=== PATIENT | male | born 1940 | race Two or more races ===

== ENCOUNTER 2023-09-10 06:07 | Inpatient (IN) | payer OTHER, SELFPAY ==
[2023-09-04 11:10] LABS: Hematocrit 43.8 % (39.0-52.0); Hemoglobin 14.4 g/dL (13.0-18.0); Mean Corp Hgb Conc. 32.9 g/dL (33.0-37.0); Mean Corpuscular Hgb 27.7 pg (27.0-31.0); Mean Corpuscular Volume 84.2 fL (80.0-94.0); Mean Platelet Volume 9.5 fL (7.4-10.4); Platelet Count 153 10^3/uL (130-400); Red Cell Dist. Width 14.7 % (11.5-14.5)
[2023-09-04 11:18] LABS: INR 0.98; PT 12.8 Sec (11.4-14.6)
[2023-09-04 11:19] LABS: APTT 31.4 Sec (23.4-35.0)
[2023-09-04 11:36] LABS: ALT (SGPT) 11 U/L (0-50); AST (SGOT) 16 U/L (17-59); Albumin 4.5 g/dl (3.5-5.0); Alkaline Phosphatase 69 U/L (38-126); Blood Urea Nitrogen 21 mg/dl (9-20); Calcium 9.9 mg/dl (8.4-10.2); Carbon Dioxide 26 mmol/L (22-30); Chloride 107 mmol/L (98-107); Glucose 108 mg/dl (70-99); Potassium 3.9 mmol/L (3.5-5.1); Sodium 143 mmol/L (135-145); Total Bilirubin 0.6 mg/dl (0.2-1.3); Total Protein 7.2 g/dl (6.3-8.2); eGFR > 60.00
[2023-09-04 12:14] LABS: Glycohemoglobin (HgbA1c) 5.5 % (4.0-5.6)
[2023-09-04 13:04] VITALS: BMI 23.3
[2023-09-10] VITALS (12 sets, daily range): BP systolic 123–159; BP diastolic 66–82; BMI 23.3
[2023-09-10 06:36] LABS: Glucose - Point of Care 113 mg/dl (70-99)
[2023-09-10] MEDS: NORMOSOL-R 1000 IV ×2 (06:46→13:35)
[2023-09-10] MEDS: TYLENOL 1000 MG PO (06:46)
[2023-09-10] MEDS: ENTEREG 12 MG PO (06:47)
[2023-09-10] MEDS: NEURONTIN 600 MG PO (06:47)
[2023-09-10] MEDS: HEPARIN 5000 UNITS SC (06:48)
[2023-09-10 08:38] LABS: Glucose - Point of Care 110 mg/dl (70-99)
[2023-09-10 10:39] LABS: Glucose - Point of Care 143 mg/dl (70-99)
--- NOTE | 2023-09-10 11:54 | W.IMMPOSTOP ---
Surgical Immed Post Op Note
-
Primary Surgeon: Marty Escalera MD
Assisting Surgeon: ROSCOE Gramajo; ROSCOE Starks
Pre-op Diagnosis: cecal polyp
Post-op Diagnosis: same
Procedure Performed: robotic right colectomy
Anesthesia Type: general plus local
Specimen / Cultures: right colon
Estimated Blood Loss: 50 cc
Complications: bladder dome injury on entry
Operative Findings: 1) bladder stuck to lower midline 2) cecal polyp
Carrera in bladder. Dr. Ferreira did the bladder repair. Will keep in for 5-6 days.
Will send to med surg.
[2023-09-10] MEDS: TORADOL 10 MG IV ×2 (13:29→17:32)
--- NOTE | 2023-09-10 13:32 | W.IMMPOSTOP ---
Surgical Immed Post Op Note
-
Primary Surgeon: Ashleighfer
Assisting Surgeon: -
Pre-op Diagnosis: Cystotomy
Post-op Diagnosis: same
Procedure Performed: Bladder wall closure
Anesthesia Type: gen
Specimen / Cultures: none
Estimated Blood Loss: 2cc
Complications: none
Operative Findings: 3cm anterior bladder wall perforation due to adherence to anterior abdominal wall after prior bladder surgery
Closure of cystotomy in 2 layers with water tight closure
No leak with 200cc fill test
20Fr benson placed
[2023-09-10 13:34] LABS: Glucose - Point of Care 151 mg/dl (70-99)
[2023-09-10 13:43] LABS: % Basophils 0.1 % (0-2); % Immature Granulocytes 0.1 % (0-0.5); % Lymphocytes 9.5 % (20.5-51.1); % Monocytes 2.8 % (1.7-9.3); % Neutrophils 87.5 % (42.2-75.2); Absolute Lymphocytes 0.7 10^3/uL (1.2-3.4); Absolute Monocytes 0.2 10^3/uL (0.1-0.6); Hematocrit 36.6 % (39.0-52.0); Hemoglobin 12.5 g/dL (13.0-18.0); Mean Corp Hgb Conc. 34.2 g/dL (33.0-37.0); Mean Corpuscular Hgb 28.3 pg (27.0-31.0); Mean Corpuscular Volume 82.8 fL (80.0-94.0); Mean Platelet Volume 8.9 fL (7.4-10.4); Nucleated Red Blood Cells % 0 % (-); Platelet Count 128 10^3/uL (130-400); Red Blood Cell Count 4.42 10^6/uL (4.70-6.10); Red Cell Dist. Width 14.8 % (11.5-14.5); White Blood Cell Count 6.9 10^3/uL (4.8-10.8)
[2023-09-10 14:02] LABS: Blood Urea Nitrogen 12 mg/dl (9-20); Calcium 8.2 mg/dl (8.4-10.2); Carbon Dioxide 22 mmol/L (22-30); Chloride 109 mmol/L (98-107); Estimated Creatinine Clearance 61 ml/min; Glucose 149 mg/dl (70-99); Magnesium 1.9 mg/dl (1.6-2.3); Potassium 3.7 mmol/L (3.5-5.1); Sodium 137 mmol/L (135-145); eGFR > 60.00
--- NOTE | 2023-09-10 14:40 | CON.HOSP ---
Consultation
-
Date/Time Consultation Requested: 09/10/2023
Requesting Provider: Dr. Escalera
Reason for Consultation: Diabetes mellitus evaluation and management
Family Physician
-
Family Physician: Xin Torres
Chief Complaint
-
Elective surgery, colectomy
History of Present Illness
Patient 83 years old man with history of diabetes mellitus, CAD, BPH, hyperlipidemia, presented to the hospital for elective colectomy. Patient had a colon cecal polyp and he was scheduled for robotic right colectomy today on 09/09 by colorectal
surgery. He also required bladder wall closure with cystostomy by urology. We are seeing him postop and consult for diabetes mellitus management. Patient seen in [address] [place] [address] and he is comfortable. Denies any chest pain or shortness of breath, denies
any polyuria polydipsia polyphagia although he has a Carrera catheter in place. No fevers or chills. Blood sugars in the 140s 150s. Patient tells me he is diabetic since last March last year. He manages his diabetes with oral hypoglycemics,
metformin and he does have a sensor and his physician is planning probably taken off medication in the near future. He was referred to hospitalist for further evaluation.
Medical History
Past Medical History
Past Medical History: Reports Other (Hyperlipidemia, BPH, diabetes mellitus type 2, mild cognitive deficits (he describes mild memory issues), gout, colon polyp.)
Past Surgical History: Reports Other (Right colectomy.)
Social History
Tobacco: Non-smoker
Alcohol: None
Drug: None
Family History
Family History: Reviewed & Not Pertinent
Allergies / Home Medications
Allergies reflects when Allergies were last updated in [facility].
Home Medications with original date entered in [facility]
Allergy/Medication List:
Allergies
Allergy/AdvReac Type Severity Reaction Status Date / Time
No Known Allergies Allergy Verified 09/10/23 06:39
Home Medications
allopurinol 100 mg tablet 100 mg PO DAILY 09/07/23
metformin 500 mg tablet,extended release 24hr (osmotic) 500 mg PO BID 09/07/23
metronidazole 500 mg tablet 500 mg PO TID 09/07/23
neomycin 500 mg tablet 1 g PO TID 09/07/23
pravastatin 40 mg tablet 40 mg PO DAILY 09/07/23
sodium sul 1.479 gram-potas ch 0.188 gram-magnes sul 0.225 gram tablet (Sutab) 0 tab PO PER PKG DIR 09/07/23
tamsulosin 0.4 mg capsule 0.4 mg PO HS 09/07/23
Review of Systems
-
A 12 point Review of Systems was completed except as noted: Yes
Physical Exam
Vital Signs
Vital Signs
Temp Pulse Resp BP Pulse Ox
98.2 F 79 13 134/73 99
09/10/23 14:25 09/10/23 14:15 09/10/23 14:15 09/10/23 14:15 09/10/23 14:15
Physical exam:
General: Well Developed, Well Nourished and No Apparent Distress
HEENT: Normocephalic, Atraumatic and Moist Mucous Membranes
Respiratory: Clear to Auscultation; Negative Wheezes, Rales or Rhonchi
Cardiac: Regular Rhythm and S1/S2
GI: Soft, mild tender and distended. Postop findings
Musculoskeletal: No Clubbing, No Cyanosis and No Edema
Neuro: Awake, Alert and Oriented
Psych: Calm
Physical Exam
General: Other
Laboratory Results
-
Laboratory Results
09/10/23 13:31
09/10/23 13:31
PT 12.8 Sec (11.4-14.6) 09/04/23 10:06
INR 0.98 09/04/23 10:06
APTT 31.4 Sec (23.4-35.0) 09/04/23 10:06
Total Bilirubin 0.6 mg/dl (0.2-1.3) 09/04/23 10:06
AST 16 U/L (17-59) L 09/04/23 10:06
ALT 11 U/L (0-50) 09/04/23 10:06
Alkaline Phosphatase 69 U/L (38-126) 09/04/23 10:06
Impression / Plan
-
IMPRESSION:
Patient 83 years old male with history of diabetes mellitus came to the hospital for elective colectomy. We are seeing him in consultation for diabetes mellitus.
Impression:
Diabetes mellitus type 2
Elective right colectomy
Bladder wall closure
Conditions prior to presentation:
Hyperlipidemia
Gout
Diabetes mellitus type 2
Cognitive deficits
BPH
PLAN:
Diabetic diet
Will check blood sugars before meals and at bedtime
Will add insulin sliding scale
Will monitor blood sugar and adjust medications accordingly
Will update hemoglobin A1c in a.m.
Will continue home diabetic regimen-->Will resume oral hypoglycemics over the next 24 hours if tolerating oral
Will give further recommendations based on his clinical course
Appreciate the opportunity of letting us seeing Mr Patel in consultation. Also discussed with at bedside.
--- NOTE | 2023-09-10 14:41 | PTCARENOTE ---
Pt arrived to 2S in bed. Full assessment completed. Abdominal incisions C/D/I, dermabonded and AMY. Carrera catheter with blood tinged urine. Bed locked and in the lowest position, safety maintained. Oriented to room and call villegas.
[2023-09-10 17:10] LABS: Glucose - Point of Care 147 mg/dl (70-99)
[2023-09-10] MEDS: TYLENOL 650 MG PO ×2 (17:30→21:02)
[2023-09-10] MEDS: FLOMAX 0.400000000000000022 MG PO (21:06)
[2023-09-10 23:54] LABS: Glucose - Point of Care 121 mg/dl (70-99)
[2023-09-11] MEDS: NORMOSOL-R 1000 IV (02:05)
[2023-09-11 03:11] VITALS: BP 127/69
[2023-09-11] MEDS: TYLENOL 650 MG PO ×7 (04:03→23:33)
[2023-09-11] MEDS: TORADOL 10 MG IV ×5 (05:35→23:33)
[2023-09-11 05:56] LABS: Glucose - Point of Care 102 mg/dl (70-99)
[2023-09-11 06:00] VITALS: BMI 23.2
[2023-09-11 06:30] LABS: % Basophils 0.1 % (0-2); % Eosinophils 0.1 % (0-6); % Immature Granulocytes 0.3 % (0-0.5); % Lymphocytes 20.7 % (20.5-51.1); % Monocytes 8.5 % (1.7-9.3); % Neutrophils 70.3 % (42.2-75.2); Absolute Lymphocytes 1.4 10^3/uL (1.2-3.4); Absolute Monocytes 0.6 10^3/uL (0.1-0.6); Absolute Neutrophils 4.7 10^3/uL (1.4-6.5); Hematocrit 38.1 % (39.0-52.0); Hemoglobin 12.4 g/dL (13.0-18.0); Mean Corp Hgb Conc. 32.5 g/dL (33.0-37.0); Mean Corpuscular Hgb 27.6 pg (27.0-31.0); Mean Corpuscular Volume 84.9 fL (80.0-94.0); Mean Platelet Volume 9.5 fL (7.4-10.4); Nucleated Red Blood Cells % 0 % (-); Platelet Count 138 10^3/uL (130-400); Red Blood Cell Count 4.49 10^6/uL (4.70-6.10); Red Cell Dist. Width 14.6 % (11.5-14.5); White Blood Cell Count 6.7 10^3/uL (4.8-10.8)
[2023-09-11 06:46] LABS: Blood Urea Nitrogen 14 mg/dl (9-20); Calcium 8.5 mg/dl (8.4-10.2); Carbon Dioxide 26 mmol/L (22-30); Chloride 106 mmol/L (98-107); Estimated Creatinine Clearance 54 ml/min; Glucose 100 mg/dl (70-99); Potassium 4.4 mmol/L (3.5-5.1); Sodium 136 mmol/L (135-145); eGFR > 60.00
[2023-09-11 07:15] VITALS: BP 129/81
--- NOTE | 2023-09-11 08:20 | W.PN.HOSP.TC ---
Today's Communication/Plan
-
Restart metformin. Continue insulin sliding scale while in the hospital. Please call us for questions.
Assessment / Plan
Assessment / Plan
Physical exam:
General: Well Developed, Well Nourished and No Apparent Distress
HEENT: Normocephalic, Atraumatic and Moist Mucous Membranes
Respiratory: Clear to Auscultation; Negative Wheezes, Rales or Rhonchi
Cardiac: Regular Rhythm and S1/S2
GI: Soft, Nontender and Nondistended. Postop findings
Musculoskeletal: No Clubbing, No Cyanosis and No Edema
Neuro: Awake, Alert and Oriented, cognitive deficits present and more pronounced today.
Psych: Calm
A/P:
Impression:
Diabetes mellitus type 2
Elective right colectomy
Bladder wall closure
Conditions prior to presentation:
Hyperlipidemia
Gout
Diabetes mellitus type 2
Cognitive deficits
BPH
PLAN:
Checking blood sugars before meals and at bedtime
Cont insulin sliding scale
Hemoglobin A1c in a.m. 5.5 on 09/03
Okay to restart home doses of metformin today (metformin p.o. 500 mg twice a day) since he is on clear liquid diet and normal renal function.
Blood sugar stable, 102 this morning
Discussed with RN today on 09/10.
I will sign off today. Please reconsult or reach out to us if any questions or concerns.
Anticipated Discharge: 24 - 48 hours
Subjective/Interval History
-
Date of Service: September 11, 2023
Patient doing well overall. No chest pain or shortness of breath.
Objective Data
-
Labs:
Laboratory Results
09/11/23
05:08
WBC 6.7
Hgb 12.4 L
Hct 38.1 L
Plt Count 138
Sodium 136
Potassium 4.4
Chloride 106
Carbon Dioxide 26
BUN 14
Creatinine 0.9
Glucose 100 H
Calcium 8.5
Vital Signs:
Vital Signs
Temp Pulse Resp BP Pulse Ox
97.8 F 74 16 129/81 99
09/11/23 07:15 09/11/23 07:15 09/11/23 07:15 09/11/23 07:15 09/11/23 07:15
I&O
09/10/23 09/11/23 09/12/23
06:59 06:59 06:59
Intake Total 1600 / 1600
Output Total 1350 / 1350
Balance 250 / 250
Review of Systems
-
Unable to obtain full review of systems at this time due to: Dementia
[2023-09-11] MEDS: PRAVACHOL 40 MG PO (08:58)
[2023-09-11] MEDS: ENTEREG 12 MG PO ×2 (08:58→20:21)
[2023-09-11] MEDS: ZYLOPRIM 100 MG PO (08:58)
[2023-09-11] MEDS: PROTONIX 40 MG PO (09:00)
--- NOTE | 2023-09-11 11:15 | W.PN.CRS1 ---
Today's Communication / Plan
-
Will start clears and Lovenox
Continue Carrera for bladder repair
Assessment/Plan
-
83-year-old male with PMH of HTN, DM, HLD, CAD, gout who was found to have an unresectable ileocecal polyp
POD 1 robotic right hemicolectomy c/b bladder injury s/p repair by urology
WBC 6.7, Hb 12.4 from 12.5, UOP 1.3 L
� Advance to clears
� Continue pain control with Tylenol, Toradol and morphine as needed, continue Entereg
� Continue Carrera per urology; keep in place for 4 to 5 days postop
� IS/OOB
� Will start DVT PPx with Lovenox
� Appreciate hospitalist for comorbidities
Subjective Data
Subjective Data
Date of Service: September 11, 2023
No overnight events.
Pain controlled.
Denies nausea/vomiting. Tolerating sips.
No bowel function + Carrera
Pt is not OOB yet.
Objective Data
-
Vital Signs
Temp Pulse Resp BP Pulse Ox
97.8 F 74 16 129/81 99
09/11/23 07:15 09/11/23 07:15 09/11/23 07:15 09/11/23 07:15 09/11/23 07:15
Intake & Output
09/10/23 09/11/23 09/12/23
06:59 06:59 06:59
Intake Total 1600 / 1600
Output Total 1350 / 1350
Balance 250 / 250
Intake:
Oral fluids 220 / 220
IV fluids (Total) 1380 / 1380
Normosol 100 / 100
Output:
Urine, Carrera 1350 / 1350
Lab Results
09/11/23 05:08
09/11/23 05:08
Physical Exam
-
General: No Acute Distress, AOx3 and Other (Forgetful)
HEENT: Grossly Normal
Abdomen: Soft, Non Distended, Tender (Appropriately tender incisions), No Guarding and No Rebound
Skin: Warm and Dry
Wound: No Signs of Infection, Dressing in Place (Dermabond) and No Skin Erythema
--- NOTE | 2023-09-11 11:50 | CM ---
Initial assessment completed with patient who lives with his daughter, son-in-law and 3 grandchildren in a 2 story home plus basement with B/B on 2nd floor and 1/2 bath on 1st. Patient has a SPC, no in-home services, no psychiatric
hospitalizations. Patient mentioned x3 that he has difficulties with short term memory. He was, however, able to converse appropriately and able to respond to questioning. Pharmacy is [facility] and PCP is Dr. Xin Torres.
Anticipate HOME WITH HH.
[2023-09-11 12:00] VITALS: BP 144/71
[2023-09-11 12:36] LABS: Glucose - Point of Care 94 mg/dl (70-99)
--- NOTE | 2023-09-11 12:57 | W.PN.URO.CBU ---
Today's Communication / Plan
-
Maintain benson
Outpatient follow up with his regular urologist for catheter management
Assessment / Plan
-
83M with prior open cystolithalopaxy who was found to have 3cm bladder wall perforation during R colectomy 09/11/23, likely due to adherence of the bladder to anterior abdominal wall
Bladder repaired intraoperatively in two layers with negative leak test
20Fr benson placed
Recommend discharge with benson in place to allow bladder healing. Would recommend keeping this in place for 10 days with cystogram prior to removal
Patient was in contact with his regular urologist Dr. Varela post operatively and prefers to follow up with him for catheter management
So far I have not been able to reach Dr. Varela myself but will provide him an update when I reach him
Will sign off - Please call with additional questions
Diagnosis
-
Date of Service: September 11, 2023
-
Patient Diagnosis:
Bladder perforation/cystotomy
Post Op Day: 1
Subjective
-
Feeling well this AM, pain controlled
Objective
-
Vital Signs
Temp Pulse Resp BP Pulse Ox
97.8 F 74 16 129/81 99
09/11/23 07:15 09/11/23 07:15 09/11/23 07:15 09/11/23 07:15 09/11/23 07:15
Intake and Output
09/10/23 09/11/23 09/12/23
06:59 06:59 06:59
Intake Total 1600 / 1600
Output Total 1350 / 1350
Balance 250 / 250
Intake:
Oral fluids 220 / 220
IV fluids (Total) 1380 / 1380
Normosol 100 / 100
Output:
Urine, Benson 1350 / 1350
Laboratory Results
09/11/23 05:08
09/11/23 05:08
Physical Exam
-
General - well developed, well nourished, no acute distress
Chest - clear bilaterally
Abdomen - soft, non-tender
- benson in place, clear urine
Skin - warm & dry with no rash
Neuro - AOx3, no motor deficits
Extremities - no clubbing, no cyanosis, no edema
Incision - clean, dry
Dressing - clean, dry, intact
[2023-09-11] MEDS: GLUCOPHAGE 500 MG PO ×2 (13:03→17:52)
[2023-09-11 14:21] VITALS: BP 142/72; BP 154/68; PULSE 71; O2SAT 100
[2023-09-11 16:00] VITALS: BP 127/69
[2023-09-11 16:39] LABS: Glucose - Point of Care 127 mg/dl (70-99)
[2023-09-11] MEDS: LOVENOX 40 MG SC (17:51)
[2023-09-11] MEDS: FLOMAX 0.400000000000000022 MG PO (20:21)
[2023-09-11 21:53] LABS: Glucose - Point of Care 88 mg/dl (70-99)
[2023-09-11 23:25] VITALS: BP 147/73
[2023-09-12] MEDS: TYLENOL PO (04:14)
[2023-09-12] MEDS: TORADOL IV (05:47)
[2023-09-12 06:00] VITALS: BMI 23.1
[2023-09-12 07:02] VITALS: BP 148/81
[2023-09-12 07:24] LABS: Glucose - Point of Care 106 mg/dl (70-99)
[2023-09-12] MEDS: PROTONIX 40 MG PO (08:49)
[2023-09-12] MEDS: PRAVACHOL 40 MG PO (08:49)
[2023-09-12] MEDS: TYLENOL 650 MG PO ×4 (08:49→20:20)
[2023-09-12] MEDS: GLUCOPHAGE 500 MG PO ×2 (08:49→17:02)
[2023-09-12] MEDS: ZYLOPRIM 100 MG PO (08:50)
[2023-09-12] MEDS: ENTEREG 12 MG PO ×2 (08:50→20:20)
[2023-09-12 12:01] LABS: Glucose - Point of Care 141 mg/dl (70-99)
[2023-09-12] MEDS: TORADOL 10 MG IV ×2 (12:10→17:03)
--- NOTE | 2023-09-12 12:54 | W.PN.CRS1 ---
Today's Communication / Plan
-
Advance diet
OOB/Ambulate
Continue benson
Assessment/Plan
-
83-year-old male with PMH of HTN, DM, HLD, CAD, gout who was found to have an unresectable ileocecal polyp
POD 2 robotic right hemicolectomy c/b bladder injury s/p repair by urology
AFVSS
Passing flatus
+hematuria
� Advance to LRD
� Continue pain control with Tylenol. Tramadol prn. continue Entereg
� Continue Benson per urology; keep in place for 4 to 5 days postop. Will likely remain in place upon discharge.
� IS/OOB
� Will start DVT PPx with Lovenox
- CM consulted for home care arrangements
� Appreciate hospitalist for comorbidities, discussed patient with Urologist.
Subjective Data
Procedure
09/09 robotic right colectomy (margie), repair of bladder wall (peffer)
Subjective Data
Date of Service: September 12, 2023
Patient seen and examined at bedside with Dr. Duenas. Denies n/v. Tolerating liquids. Minimal post op discomfort. +flatus, no bm as of yet. Tolerating benson.
Objective Data
-
Vital Signs
Temp Pulse Resp BP Pulse Ox
98.8 F 81 14 148/81 97
09/12/23 07:02 09/12/23 07:02 09/12/23 07:02 09/12/23 07:02 09/12/23 07:02
Intake & Output
09/11/23 09/12/23 09/13/23
06:59 06:59 06:59
Intake Total 1600 / 1600
Output Total 1350 / 1350 900 / 900
Balance 250 / 250 -900 / -900
Intake:
Oral fluids 220 / 220
IV fluids (Total) 1380 / 1380
Normosol 100 / 100
Output:
Urine, Benson 1350 / 1350 900 / 900
Lab Results
09/11/23 05:08
09/11/23 05:08
Physical Exam
-
General: No Acute Distress and AOx3
HEENT: Grossly Normal
Abdomen: Soft, Non Distended, Tender (Appropriately tender incisions), No Guarding, No Rebound and Other (benson with bloody urine)
Skin: Warm and Dry
Wound: No Signs of Infection, Dressing in Place (Dermabond) and No Skin Erythema
[2023-09-12 14:18] VITALS: BP 139/68; PULSE 94
--- NOTE | 2023-09-12 15:08 | W.PN.URO.CBU ---
Today's Communication / Plan
-
Observe hematuria
Flushing PRN
Assessment / Plan
-
83M with prior open cystolithalopaxy who was found to have 3cm bladder wall perforation during R colectomy 09/11/23, likely due to adherence of the bladder to anterior abdominal wall
Bladder repaired intraoperatively in two layers with negative leak test
20Fr benson placed
Some hematuria 09/11
Bladder irrigated at bedside with about 50cc of clot removed
Urine light pink after flushing clot
Continue to observe hematuria
Recommend discharge with benson in place to allow bladder healing. Would recommend keeping this in place for 10 days with cystogram prior to removal
Patient was in contact with his regular urologist Dr. Varela post operatively and prefers to follow up with him for catheter management
So far I have not been able to reach Dr. Varela myself but will provide him an update when I reach him
Diagnosis
-
Date of Service: September 12, 2023
-
Patient Diagnosis:
Bladder perforation/cystotomy
Subjective
-
Tolerating benson
Developed some hematuria overnight
Objective
-
Vital Signs
Temp Pulse Resp BP Pulse Ox
98.8 F 81 14 148/81 97
09/12/23 07:02 09/12/23 07:02 09/12/23 07:02 09/12/23 07:02 09/12/23 07:02
Intake and Output
09/11/23 09/12/23 09/13/23
06:59 06:59 06:59
Intake Total 1600 / 1600
Output Total 1350 / 1350 900 / 900
Balance 250 / 250 -900 / -900
Intake:
Oral fluids 220 / 220
IV fluids (Total) 1380 / 1380
Normosol 100 / 100
Output:
Urine, Benson 1350 / 1350 900 / 900
Laboratory Results
09/11/23 05:08
09/11/23 05:08
Physical Exam
-
General - well developed, well nourished, no acute distress
Chest - clear
Abdomen - soft, non-tender
- benson in place, urine red with clots
Incision - clean, dry
Dressing - clean, dry, intact
--- NOTE | 2023-09-12 15:53 | CM ---
Received consult for VN. Reviewed chart notes and spoke with the patient at the bedside and spouse via phone. Per spouse, patient was receiving VN services through [place]. Referral sent to [facility] via [facility]. Initially referral
sent to VN, but the patient is out of area for VN.
[2023-09-12 16:01] VITALS: BP 141/85
[2023-09-12 16:53] LABS: Glucose - Point of Care 119 mg/dl (70-99)
[2023-09-12] MEDS: LOVENOX 40 MG SC (17:02)
[2023-09-12 20:04] VITALS: BMI 23.1
--- NOTE | 2023-09-12 21:00 | PTCARENOTE ---
MD notified of bloody output with clots from catheter, PRN irrigation order placed, irrigated for 100ml NSS per order. Carrera patent but cont with bloody output.
[2023-09-12] MEDS: FLOMAX 0.400000000000000022 MG PO (21:40)
[2023-09-12 21:46] LABS: Glucose - Point of Care 92 mg/dl (70-99)
[2023-09-13 00:10] VITALS: BP 163/83
[2023-09-13] MEDS: TYLENOL PO ×3 (04:00→17:33)
[2023-09-13] MEDS: TORADOL IV ×4 (05:49→17:46)
[2023-09-13 06:00] VITALS: BMI 23.9
--- NOTE | 2023-09-13 06:23 | PTCARENOTE ---
benson irrigated 2x during shift, cont with clots and bloody output, benson patent.
[2023-09-13 07:30] VITALS: BP 124/56
[2023-09-13 07:35] LABS: Glucose - Point of Care 112 mg/dl (70-99)
[2023-09-13] MEDS: PROTONIX 40 MG PO (08:06)
[2023-09-13] MEDS: ZYLOPRIM 100 MG PO (08:06)
[2023-09-13] MEDS: GLUCOPHAGE 500 MG PO ×2 (08:06→17:34)
[2023-09-13] MEDS: TYLENOL 650 MG PO ×3 (08:06→21:00)
[2023-09-13] MEDS: ENTEREG 12 MG PO ×2 (08:06→21:09)
[2023-09-13] MEDS: PRAVACHOL 40 MG PO (08:06)
--- NOTE | 2023-09-13 11:44 | W.PN.CRS1 ---
Today's Communication / Plan
-
continue low residue
urology to see regarding bloody benson output
Assessment/Plan
-
83-year-old male with PMH of HTN, DM, HLD, CAD, gout who was found to have an unresectable ileocecal polyp
POD#3 robotic right hemicolectomy c/b bladder injury s/p repair by urology
1. Continue LRD.
2. Continue pain control with Tylenol. Tramadol prn.
3. Continue Benson per urology; keep in place for 4 to 5 days postop. Will likely remain in place upon discharge. Still with bloody output, discussed with urology who will see patient again today. May need VN/home irrigations.
4. IS/OOB
5. DVT PPx: Lovenox, TEDS, SCDS.
6. Appreciate hospitalist.
7. Likely home tomorrow.
Subjective Data
Procedure
09/09 robotic right colectomy (margie), repair of bladder wall (peffer)
Subjective Data
Date of Service: September 13, 2023
Patient states he feels 'okay'. He has no complaints. He is tolerating a low residue diet. He has bowel function. His catheter is still putting out red bloody urine.
Objective Data
-
Vital Signs
Temp Pulse Resp BP Pulse Ox
98.7 F 91 16 124/56 97
09/13/23 07:30 09/13/23 07:30 09/13/23 07:30 09/13/23 07:30 09/13/23 07:30
Intake & Output
09/12/23 09/13/23 09/14/23
06:59 06:59 06:59
Intake Total 1660 / 1660
Output Total 900 / 900 2380 / 2380
Balance -900 / -900 -720 / -720
Intake:
Oral fluids 1460 / 1460
Benson intermittent irrigation 200 / 200
Output:
Urine, Benson 900 / 900 950 / 950
Urine, Voided 1430 / 1430
Lab Results
09/11/23 05:08
09/11/23 05:08
Physical Exam
-
General: No Acute Distress and AOx3
Abdomen: Soft, Non Distended and Non Tender
Skin: Warm and Dry
Incision: Clear, Dry, Intact
--- NOTE | 2023-09-13 11:51 | W.PN.URO.CBU ---
Addendum entered and electronically signed by Abdias Ferreira MD 09/13/23 17:37:
Will hold Lovenox which may help stop any residual prostate bleeding
Original Note:
Today's Communication / Plan
-
Trend hematuria
Flush PRN
Assessment / Plan
-
83M with prior open cystolithalopaxy who was found to have 3cm bladder wall perforation during R colectomy 09/11/23, likely due to adherence of the bladder to anterior abdominal wall
Bladder repaired intraoperatively in two layers with negative leak test
20Fr benson placed
Some hematuria starting 09/11, irrigated for removal of clot
Some persistent hematuria today requiring catheter flushing, but less clot than yesterday and today irrigated to clear
Trend hematuria - hopefully no further intervention needed
- Recommend discharge with benson in place to allow bladder healing. Would recommend keeping this in place for 10 days with cystogram prior to removal
- Patient was in contact with his regular urologist Dr. Varela post operatively and prefers to follow up with him for catheter management
- So far I have not been able to reach Dr. Varela myself but will provide him an update when I reach him
Diagnosis
-
Date of Service: September 13, 2023
-
Patient Diagnosis:
Bladder perforation/cystotomy
Subjective
-
Flushing for clots twice last night - no pain or obstruction
Objective
-
Vital Signs
Temp Pulse Resp BP Pulse Ox
98.7 F 91 16 124/56 97
09/13/23 07:30 09/13/23 07:30 09/13/23 07:30 09/13/23 07:30 09/13/23 07:30
Intake and Output
09/12/23 09/13/23 09/14/23
06:59 06:59 06:59
Intake Total 1660 / 1660
Output Total 900 / 900 2380 / 2380
Balance -900 / -900 -720 / -720
Intake:
Oral fluids 1460 / 1460
Benson intermittent irrigation 200 / 200
Output:
Urine, Benson 900 / 900 950 / 950
Urine, Voided 1430 / 1430
Laboratory Results
09/11/23 05:08
09/11/23 05:08
Physical Exam
-
General - well developed, well nourished, no acute distress
Chest - clear
Abdomen - soft, non-tender
- benson in place, dark urine
Incision - clean, dry
Dressing - clean, dry, intact
[2023-09-13 11:55] LABS: Glucose - Point of Care 147 mg/dl (70-99)
[2023-09-13 15:25] VITALS: BP 128/75
--- NOTE | 2023-09-13 15:48 | CHAP ---
Mr. Naylor welcomed me graciously. We prayed together, and I assured him we are here for him.
--- NOTE | 2023-09-13 15:52 | CM ---
Reviewed the chart notes and spoke with the patient at the bedside. IMM signed and placed on the chart. CM continues to be available to patient/family and is monitoring medical plan for needs at discharge.
Plan: Discharge to home with [facility].
[2023-09-13 17:11] LABS: Glucose - Point of Care 111 mg/dl (70-99)
[2023-09-13] MEDS: FLOMAX 0.400000000000000022 MG PO (21:09)
[2023-09-13 21:35] LABS: Glucose - Point of Care 86 mg/dl (70-99)
[2023-09-13 23:02] VITALS: BP 157/81
[2023-09-14] MEDS: TYLENOL PO ×2 (01:00→04:59)
[2023-09-14] MEDS: TORADOL IV ×5 (01:00→17:13)
[2023-09-14 07:35] VITALS: BP 130/74
[2023-09-14 07:41] LABS: Glucose - Point of Care 108 mg/dl (70-99)
--- NOTE | 2023-09-14 07:55 | W.PN.HOSP.TC ---
Today's Communication/Plan
-
cont current mgmt
Assessment / Plan
Assessment / Plan
Physical exam:
General: Well Developed, Well Nourished and No Apparent Distress
HEENT: Normocephalic, Atraumatic and Moist Mucous Membranes
Respiratory: Clear to Auscultation; Negative Wheezes, Rales or Rhonchi
Cardiac: Regular Rhythm and S1/S2
GI: Soft, Nontender and Nondistended. Postop findings
Musculoskeletal: No Clubbing, No Cyanosis and No Edema
Neuro: Awake, Alert and Oriented, cognitive deficits present and more pronounced today.
Psych: Calm
A/P:
Impression:
Diabetes mellitus type 2
Elective right colectomy
Bladder wall closure
Hematuria
Conditions prior to presentation:
Hyperlipidemia
Gout
Diabetes mellitus type 2
Cognitive deficits
BPH
PLAN:
Tolerating low residue diet
Carrera catheter in place
Checking blood sugars before meals and at bedtime
Cont insulin sliding scale
Hemoglobin A1c in a.m. 5.5 on 09/03
Tolerating metformin okay
Blood sugar stable, 108 and 127 this morning
Discussed with RN today on 09/13.
Will follow-up as needed.
Anticipated Discharge: Within 24 hours
Subjective/Interval History
-
Date of Service: September 14, 2023
Patient seen and examined.
Objective Data
-
Vital Signs:
Vital Signs
Temp Pulse Resp BP Pulse Ox
98.9 F 92 18 157/81 99
09/13/23 23:02 09/13/23 23:02 09/13/23 23:02 09/13/23 23:02 09/13/23 23:02
I&O
09/13/23 09/14/23 09/15/23
06:59 06:59 06:59
Intake Total 1660 / 1660 1180 / 1180
Output Total 2380 / 2380 700 / 700
Balance -720 / -720 480 / 480
--- NOTE | 2023-09-14 08:18 | W.PN.URO.CBU ---
Today's Communication / Plan
-
Hematuria now mild, nearly resolved
Follow up with his regular urologist for catheter removal
Assessment / Plan
-
83M with prior open cystolithalopaxy who was found to have 3cm bladder wall perforation during R colectomy 09/11/23, likely due to adherence of the bladder to anterior abdominal wall
Bladder repaired intraoperatively in two layers with negative leak test
20Fr benson placed
- Hematuria nearly resolved this AM, no further intervention needed
- Recommend discharge with benson in place to allow bladder healing. Would recommend keeping this in place for 10 days with cystogram prior to removal
- Patient was in contact with his regular urologist and prefers to follow up with him for catheter management
- Discussed with Dr. Varela 09/12 to give an update on events - Dr. Varela will take over urologic care and schedule catheter removal
Diagnosis
-
Date of Service: September 14, 2023
-
Patient Diagnosis:
Bladder perforation/cystotomy
Gross hematuria
Subjective
-
No events overnight
No flushing required
Objective
-
Vital Signs
Temp Pulse Resp BP Pulse Ox
98.9 F 92 18 157/81 99
09/13/23 23:02 09/13/23 23:02 09/13/23 23:02 09/13/23 23:02 09/13/23 23:02
Intake and Output
09/13/23 09/14/23 09/15/23
06:59 06:59 06:59
Intake Total 1660 / 1660 1180 / 1180
Output Total 2380 / 2380 700 / 700
Balance -720 / -720 480 / 480
Intake:
Oral fluids 1460 / 1460 1180 / 1180
Benson intermittent irrigation 200 / 200
Output:
Urine, Benson 950 / 950 700 / 700
Urine, Voided 1430 / 1430
Other:
Number of unmeasured liquid
stools
Rectum 2
Laboratory Results
09/11/23 05:08
09/11/23 05:08
Physical Exam
-
General - well developed, well nourished, no acute distress
Chest - clear
Abdomen - soft, non-tender
- benson in place, yeallow urine
Skin - warm & dry with no rash
Neuro - AOx3, no motor deficits
Extremities - no edema
Incision - clean, dry
Dressing - clean, dry, intact
[2023-09-14] MEDS: ZYLOPRIM 100 MG PO (08:53)
[2023-09-14] MEDS: PROTONIX 40 MG PO (08:53)
[2023-09-14] MEDS: GLUCOPHAGE 500 MG PO ×2 (08:53→16:12)
[2023-09-14] MEDS: TYLENOL 650 MG PO ×4 (08:53→20:18)
[2023-09-14] MEDS: ENTEREG 12 MG PO ×2 (08:53→20:18)
[2023-09-14] MEDS: PRAVACHOL 40 MG PO (08:53)
--- NOTE | 2023-09-14 11:38 | W.PN.CRS1 ---
Today's Communication / Plan
-
continue low residue
benson in place
likely home tomorrow with VN
Assessment/Plan
-
83-year-old male with PMH of HTN, DM, HLD, CAD, gout who was found to have an unresectable ileocecal polyp
POD#4 robotic right hemicolectomy c/b bladder injury s/p repair by urology
1. Continue LRD.
2. Continue pain control with Tylenol. Tramadol prn.
3. Continue Benson per urology; keep in place for 10 days. Will need to follow up with outpatient urologist for cystogram and removal.
4.�IS/OOB
5. DVT PPx: Neenax, MICS, SCDS.
6. Appreciate hospitalist.
7. OR pathology pending.
8. Likely d/c in AM with VN.
Subjective Data
Procedure
09/09 robotic right colectomy (margie), repair of bladder wall (peffer)
Subjective Data
Date of Service: September 14, 2023
Patient states he had a bowel movement yesterday. His pain is controlled. He denies nausea or vomiting.
Objective Data
-
Vital Signs
Temp Pulse Resp BP Pulse Ox
98.2 F 77 18 130/74 98
09/14/23 07:35 09/14/23 07:35 09/14/23 07:35 09/14/23 07:35 09/14/23 08:00
Intake & Output
09/13/23 09/14/23 09/15/23
06:59 06:59 06:59
Intake Total 1660 / 1660 1180 / 1180
Output Total 2380 / 2380 700 / 700
Balance -720 / -720 480 / 480
Intake:
Oral fluids 1460 / 1460 1180 / 1180
Benson intermittent irrigation 200 / 200
Output:
Urine, Benson 950 / 950 700 / 700
Urine, Voided 1430 / 1430
Other:
Number of unmeasured liquid
stools
Rectum 2
Lab Results
09/11/23 05:08
09/11/23 05:08
Physical Exam
-
General: No Acute Distress and AOx3
Abdomen: Soft, Non Distended and Non Tender
Skin: Warm and Dry
Incision: Clear, Dry, Intact
[2023-09-14 11:56] LABS: Glucose - Point of Care 127 mg/dl (70-99)
--- NOTE | 2023-09-14 15:26 | CM ---
Reviewed the chart notes. [facility] accepted patient. CM continues to be available to patient/family and is monitoring medical plan for needs at discharge.
Plan: Discharge to home with [facility].
[facility] fax: [phone]
[2023-09-14 15:30] VITALS: BP 134/68
[2023-09-14 17:08] LABS: Glucose - Point of Care 101 mg/dl (70-99)
[2023-09-14] MEDS: FLOMAX 0.400000000000000022 MG PO (20:18)
[2023-09-14 21:24] LABS: Glucose - Point of Care 131 mg/dl (70-99)
[2023-09-14 23:11] VITALS: BP 148/68
[2023-09-15] MEDS: TYLENOL PO (00:09)
[2023-09-15] MEDS: TORADOL IV ×3 (00:10→11:57)
[2023-09-15] MEDS: TYLENOL 650 MG PO ×3 (03:07→11:56)
[2023-09-15 03:18] VITALS: BP 143/66
[2023-09-15 04:51] VITALS: BMI 24.0
[2023-09-15 07:48] VITALS: BP 160/73
[2023-09-15 07:57] LABS: Glucose - Point of Care 103 mg/dl (70-99)
[2023-09-15] MEDS: PRAVACHOL 40 MG PO (08:32)
[2023-09-15] MEDS: PROTONIX 40 MG PO (08:32)
[2023-09-15] MEDS: GLUCOPHAGE 500 MG PO (08:32)
[2023-09-15] MEDS: ZYLOPRIM 100 MG PO (08:32)
[2023-09-15] MEDS: ENTEREG 12 MG PO (08:32)
--- NOTE | 2023-09-15 08:51 | W.PN.HOSP.TC ---
Today's Communication/Plan
-
Continue current management.
Assessment / Plan
Assessment / Plan
Physical exam:
General: Well Developed, Well Nourished and No Apparent Distress
HEENT: Normocephalic, Atraumatic and Moist Mucous Membranes
Respiratory: Clear to Auscultation; Negative Wheezes, Rales or Rhonchi
Cardiac: Regular Rhythm and S1/S2
GI: Soft, Nontender and Nondistended. Postop findings
Musculoskeletal: No Clubbing, No Cyanosis and No Edema
Neuro: Awake, Alert and Oriented, cognitive deficits present and more pronounced today.
Psych: Calm
A/P:
Impression:
Diabetes mellitus type 2
Elective right colectomy
Bladder wall closure
Hematuria
Conditions prior to presentation:
Hyperlipidemia
Gout
Diabetes mellitus type 2
Cognitive deficits
BPH
PLAN:
Tolerating low residue diet
Carrera catheter in place
Checking blood sugars before meals and at bedtime
Cont insulin sliding scale
Hemoglobin A1c in a.m. 5.5 on 09/03
Tolerating metformin okay
Blood sugar stable
Okay for discharge from medical standpoint.
Will follow-up as needed.
Anticipated Discharge: Today
Subjective/Interval History
-
Date of Service: September 15, 2023
Patient denies any new complaints.
Objective Data
-
Vital Signs:
Vital Signs
Temp Pulse Resp BP Pulse Ox
98.4 F 91 19 160/73 99
09/15/23 07:48 09/15/23 07:48 09/15/23 07:48 09/15/23 07:48 09/15/23 07:48
I&O
09/14/23 09/15/23 09/16/23
06:59 06:59 06:59
Intake Total 1180 / 1180 900 / 900
Output Total 700 / 700 1075 / 1075
Balance 480 / 480 -175 / -175
--- NOTE | 2023-09-15 11:15 | W.PN.CRS1 ---
Addendum entered and electronically signed by Luis Miguel Escalera MD 09/15/23 12:44:
I saw and examined the patient.
The PA's note was reviewed and I agree with the note.
Comment:
Seen in am with PA.
No complaints. Tolerating diet.
Vitals reasonable.
Abdominal incisions looked good. Carrera in place.
Ok for discharge.
Original Note:
Today's Communication / Plan
-
Discharge
Assessment/Plan
-
83-year-old male with PMH of HTN, DM, HLD, CAD, gout who was found to have an unresectable ileocecal polyp
POD#5 robotic right hemicolectomy c/b bladder injury s/p repair by urology
1. Continue LRD.
2. Continue pain control with Tylenol. Tramadol prn.
3. Continue Carrera per urology; keep in place for 10 days. Will need to follow up with outpatient urologist for cystogram and removal.
4.�IS/OOB
5. DVT PPx: Lovenox, TEDS, SCDS.
6. Appreciate hospitalist.
7. OR pathology pending.
8. Okay for discharge today with visiting nurse.
Subjective Data
Procedure
09/09 robotic right colectomy (margie), repair of bladder wall (art)
Subjective Data
Date of Service: September 15, 2023
Patient states his pain is well-controlled. He has no complaints at this time. He denies nausea or vomiting. He is tolerating diet. His urine is clearing in the Carrera bag.
Objective Data
-
Vital Signs
Temp Pulse Resp BP Pulse Ox
98.4 F 91 19 160/73 99
09/15/23 07:48 09/15/23 07:48 09/15/23 07:48 09/15/23 07:48 09/15/23 08:00
Intake & Output
09/14/23 09/15/23 09/16/23
06:59 06:59 06:59
Intake Total 1180 / 1180 900 / 900
Output Total 700 / 700 1075 / 1075
Balance 480 / 480 -175 / -175
Intake:
Oral fluids 1180 / 1180 900 / 900
Output:
Urine, Carrera 700 / 700 1075 / 1075
Other:
Number of unmeasured liquid
stools
Rectum 2
Lab Results
09/11/23 05:08
09/11/23 05:08
Physical Exam
-
General: No Acute Distress and AOx3
Abdomen: Soft, Non Distended and Non Tender
Skin: Warm and Dry
Incision: Clear, Dry, Intact
--- NOTE | 2023-09-15 11:21 | W.DS.TRANS ---
DC Summary - Tumbling Instructor
-
Discharge Instructions:
Sleep Apnea Risk Intermediate
Discharge Diagnosis/Procedures robotic right hemicolectomy with bladder repair
Diet Low Fiber
Activity No strenuous activity
Additional Activity do not lift more than 15 pounds for the next 2-3
weeks
Driving Restrictions Wait until comfortable twisting/off narcotics
Bathing Restrictions OK to Shower
Other Services VN
Wound Care Ok to shower and wash your incisions gently with
soap and water. Avoid picking or scrubbing off
the glue.
Instructions: Low Fiber Diet
How to Care for Your Carrera Catheter, Male
Stand-Alone Forms:
Changes to Home Medications: Yes
Discharge Medications:
DC Medications w/original date entered in [facility]
allopurinol 100 mg tablet 100 mg PO DAILY 09/07/23
pravastatin 40 mg tablet 40 mg PO DAILY 09/07/23
tamsulosin 0.4 mg capsule 0.4 mg PO HS 09/07/23
metformin 500 mg tablet 500 mg PO BID 09/11/23
tramadol 50 mg tablet 50 mg PO Q6H PRN Pain #20 tabs 09/15/23
Home Medication Changes
tramadol 50 mg tablet 50 mg PO Q6H PRN Pain #20 tabs 09/15/23
Pending Results: No
--- NOTE | 2023-09-15 11:35 | CM ---
Reviewed the chart notes. Patient is for discharge today to home with [facility]. Patient's spouse will provide transportation. CM continues to be available to patient/family and is monitoring medical plan for needs at discharge.
Plan: Discharge to home with [facility].
[facility] fax: [phone]
[2023-09-15 12:02] VITALS: BP 133/79
--- NOTE | 2023-09-30 10:26 | W.DCSUMMARY ---
Discharge Summary
Discharge Data
Date of Admission: 09/10/23
Date of Discharge: 09/15/23
-
Pending Results: Yes
Additional Pending Results:
OR pathology
Hospital Course
83-year-old male underwent a scheduled robotic right colectomy due to a cecal polyp. There was a bladder dome injury upon entry and Dr. Ferreira of urology performed a bladder repair. The patient was brought back to the medical surgical floor. On
postop day 1 the patient's diet was advanced to clears. The Benson was kept in place given the injury. Lovenox was started for DVT prophylaxis. On postop day 2 the diet was advanced to a low residue diet. His Benson had some hematuria but it
resolved prior to discharge. The patient was discharged on postop day 5 with a Benson to be kept in place. The patient agreed to follow-up with his outpatient urologist, Dr. Varela, for a cystoscopy and Benson removal. All discharge instructions
were discussed with the patient including medications activity levels and follow-up. All questions were answered. Pathology is pending at the time of discharge.
Discharge Plan
-
Patient Disposition: Home with Home Care
Discharge Diagnosis/Procedures: robotic right hemicolectomy with bladder repair
Condition: Good
Diet: Low Fiber
Activity: No strenuous activity
Additional Activity: do not lift more than 15 pounds for the next 2-3 weeks
Driving Restrictions: Wait until comfortable twisting/off narcotics
Bathing Restrictions: OK to Shower
Other Services: VN
Wound Care: Ok to shower and wash your incisions gently with soap and water. Avoid picking or scrubbing off the glue.
Activity Restrictions/Additional Instructions:
Call your surgeon if you have a fever >100.5, nausea with vomiting or worsening abdominal pain.
Call your urologist to arrange removal of your benson catheter as an outpatient after a minimum of 10 days from discharge with a cystogram prior to removal.
Instructions: Low Fiber Diet, How to Care for Your Benson Catheter, Male
Referrals:
Luis Miguel Escalera MD [Active] - in two to three weeks
Xin Torres MD [Family Provider] -
Jaiden Varela MD [Non-Admitting Privileges] - in one week (follow up with your urologist for catheter removal and follow up)
Additional Discharge Medication Instructions: Tylenol ibuprofen as needed for pain. The maximum dose of Tylenol is 4000 mg in 24 hours. The maximum dose of ibuprofen is 3200 mg in 24 hours in 24 hours.
Prescriptions:
New
tramadol 50 mg tablet
50 mg PO Q6H PRN (Reason: Pain) Qty: 20 0RF
Continued
pravastatin 40 mg Tablet
40 mg PO DAILY
allopurinol 100 mg Tablet
100 mg PO DAILY
tamsulosin 0.4 mg Capsule
0.4 mg PO HS
metformin 500 mg Tablet
500 mg PO BID
Discharge Orders:
Discharge Patient (As Directed); Ordered 09/15/23
Ordered By: Emma Johnston
Discharge Date and Time
Discharge Date/Time: 09/15/23 13:43
Print Language: URDU
== END 2023-09-15 13:43 | disposition home health service (06) | DRG 330 ==
LOC: 2 SOUTH 06:07
PROVIDERS: Urology; ADMITTING PHYSICIAN Surgery; ATTENDING PHYSICIAN Hospitalist; FAMILY PHYSICIAN Family Medicine
PROC: 8E0W4CZ Robotic Assisted Procedure of Trunk Region, Percutaneous Endoscopic Approach (ICD-10-PCS; 2023-09-10)
PROC: 0DTF4ZZ Resection of Right Large Intestine, Percutaneous Endoscopic Approach (ICD-10-PCS; 2023-09-10)
PROC: 0TQB4ZZ Repair Bladder, Percutaneous Endoscopic Approach (ICD-10-PCS; 2023-09-10)
DX: K63.5 Polyp of colon (principal); N99.72 Accidental puncture and laceration of a genitourinary system organ or structure during other procedure; E11.9 Type 2 diabetes mellitus without complications; I25.10 Atherosclerotic heart disease of native coronary artery without angina pectoris; N40.0 Benign prostatic hyperplasia without lower urinary tract symptoms; E78.49 Other hyperlipidemia; Y65.8 Other specified misadventures during surgical and medical care; Y92.234 Operating room of hospital as the place of occurrence of the external cause; R41.89 Other symptoms and signs involving cognitive functions and awareness; R31.9 Hematuria, unspecified; K66.0 Peritoneal adhesions (postprocedural) (postinfection); M10.9 Gout, unspecified; Z79.84 Long term (current) use of oral hypoglycemic drugs
CPT/HCPCS: 88307; 36415; 80048; 80053; 82962; 83036; 83735; 85025; 85027; 85610; 85730; 86850; 86900; 86901; 93005; 97116; 97162; 97530; J1335

== ENCOUNTER → 2023-09-22 10:46 | Outpatient (REF) | payer OTHER, SELFPAY | LOC: RAD 10:46 | PROVIDERS: ATTENDING PHYSICIAN Urology; FAMILY PHYSICIAN Family Medicine | DX: N21.0 Calculus in bladder (principal) | CPT/HCPCS: 51600; 74430; Q9967 ==